=== PATIENT | male | born 1940 | race Caucasian/White ===

== ENCOUNTER → 2018-09-18 | Outpatient (CLI) | payer MEDICARE ==
[~2018-09-18] MED LIST: ASPI-1197 PO; ATOR40TA69 PO; CALC300T31 PO; DOCU100T PO; METO25TA6 PO; MULT-1192 PO; REGADENOSON 0.4 MG/5 ML PF SYG IVP SCH
== END | disposition home or self-care (01) ==
LOC: SHCH 09:05
PROVIDERS: ATTEND Internal Medicine Cardiovascular Disease
DX: I20.8 Other forms of angina pectoris (principal); Z72.89 Other problems related to lifestyle
CPT/HCPCS: 78452; 93017; 96374; A9505; J2785

== ENCOUNTER → 2019-05-14 | Outpatient (CLI) | payer MEDICARE ==
[~2019-05-14] MED LIST changes: -REGADENOSON 0.4 MG/5 ML PF SYG IVP SCH
== END | disposition home or self-care (01) ==
LOC: SHCH 07:56
PROVIDERS: ATTEND Internal Medicine Cardiovascular Disease
DX: I71.4 Abdominal aortic aneurysm, without rupture (principal)
CPT/HCPCS: 93978

== ENCOUNTER → 2023-08-02 | Outpatient (CLI) | payer OTHER | END | disposition home or self-care (01) | LOC: RAH 14:09 | PROVIDERS: ATTEND Urology | DX: N28.89 Other specified disorders of kidney and ureter (principal); N20.0 Calculus of kidney | CPT/HCPCS: 76770 ==

== ENCOUNTER → 2023-12-08 | Outpatient (CLI) | payer OTHER ==
[~2023-12-08] MED LIST changes: +REGADENOSON 0.4 MG/5 ML PF SYG IVP ONE
== END | disposition home or self-care (01) ==
LOC: SHCH 07:40
PROVIDERS: ATTEND Internal Medicine Cardiovascular Disease
DX: I45.10 Unspecified right bundle-branch block (principal); I25.10 Atherosclerotic heart disease of native coronary artery without angina pectoris; R06.00 Dyspnea, unspecified
CPT/HCPCS: 78452; 96374; 93017; J2785; A9500 ×2

== ENCOUNTER → 2023-12-27 | Outpatient (CLI) | payer OTHER ==
[~2023-12-27] MED LIST changes: -REGADENOSON 0.4 MG/5 ML PF SYG IVP ONE
[2023-12-27 16:20] LABS: BASOPHILS # (AUTO) 0.05 K/uL (0.00-0.20); BASOPHILS % (AUTO) 0.5 % (0.0-5.0); EOSINOPHILS # (AUTO) 0.55 K/uL (0.00-0.70); EOSINOPHILS % (AUTO) 5.4 % (0.0-8.0); HEMATOCRIT 37.7 % (42-54); IMMATURE GRANULOCYTE ABSOLUTE 0.04 K/uL (0-1); LYMPHOCYTES # (AUTO) 1.8 K/uL (1.0-4.8); LYMPHOCYTES % (AUTO) 17.6 % (21.0-51.0); MEAN CORPUSCULAR HEMOGLOBIN 30.9 pg (27.0-33.0); MEAN CORPUSCULAR HGB CONC 33.7 g/dL (32.0-36.0); MEAN CORPUSCULAR VOLUME 91.7 fL (79-99); MONOCYTES # (AUTO) 0.8 K/uL (0.1-1.0); MONOCYTES % (AUTO) 7.8 % (3.0-13.0); NEUTROPHILS % (AUTO) 68.3 % (40.0-77.0); PLATELET COUNT (AUTO) 200 K/uL (130-400); RED BLOOD CELL COUNT(AUTO) 4.11 MIL/uL (4.50-6.20); RED CELL DISTRIBUTION WIDTH 13.3 % (11.0-15.5); WHITE BLOOD COUNT (AUTO) 10.2 K/uL (4.8-10.8)
== END | disposition home or self-care (01) ==
LOC: LAB 12:52
PROVIDERS: ATTEND Internal Medicine Cardiovascular Disease
DX: I25.10 Atherosclerotic heart disease of native coronary artery without angina pectoris (principal)
CPT/HCPCS: 36415; 85025; 85378

== ENCOUNTER → 2024-02-27 | Outpatient (CLI) | payer OTHER | END | disposition home or self-care (01) | LOC: RAH 13:10 | PROVIDERS: ATTEND Internal Medicine Cardiovascular Disease | DX: R06.00 Dyspnea, unspecified (principal); R79.1 Abnormal coagulation profile; M47.814 Spondylosis without myelopathy or radiculopathy, thoracic region | CPT/HCPCS: 78582; 71045; A9540; A9558 ==

== ENCOUNTER 2024-03-05 12:20 | Emergency (ER) | payer OTHER ==
[~2024-03-05] VITALS: Ht 182.9 cm; Wt 95.3 kg
[2024-03-05] MEDS: MORPHINE 4 MG SYG IM ONE (13:37)
[2024-03-05] MEDS ORDERED: LIDOP TD (17:05)
[2024-03-05] MEDS ORDERED: TRAM50TA4 PO (17:05)
[2024-03-05] MEDS: LIDOCAINE 5% TOPICAL PATCH TP ONE (17:09)
[2024-03-05 18:14] VITALS: BP 167/70; PULSE 68; RESP 19; O2SAT 99
== END 2024-03-05 18:07 | disposition home or self-care (01) ==
LOC: EDH 12:20
DX: S22.41XA Multiple fractures of ribs, right side, initial encounter for closed fracture (principal); E78.00 Pure hypercholesterolemia, unspecified; I50.9 Heart failure, unspecified; J44.9 Chronic obstructive pulmonary disease, unspecified; K21.9 Gastro-esophageal reflux disease without esophagitis; Z79.82 Long term (current) use of aspirin; Z79.899 Other long term (current) drug therapy; Z98.890 Other specified postprocedural states; Z88.0 Allergy status to penicillin; Z88.8 Allergy status to other drugs, medicaments and biological substances; W18.39XA Other fall on same level, initial encounter; Y93.01 Activity, walking, marching and hiking; Y92.89 Other specified places as the place of occurrence of the external cause; Y99.8 Other external cause status
CPT/HCPCS: 99285; 70450; 71250; 96372; J2270

== ENCOUNTER 2024-03-07 06:10 | Emergency (ER) | payer OTHER ==
[~2024-03-07 06:10] MED LIST changes: +LIDOP TD; +TRAM50TA4 PO
[2024-03-07] MEDS: FAMOTIDINE 20MG VIAL IV ONE (08:34)
[2024-03-07] MEDS: METOCLOPRAMIDE 10 MG/2 ML VIAL IVP ONE (08:34)
[2024-03-07] MEDS: DIAZEPAM 5 MG/ML 2 ML SYG IVP ONE (08:35)
[2024-03-07] MEDS: KETOROLAC 30MG VIAL (30MG/ML) IVP ONE (08:35)
[2024-03-07] MEDS: ALBUTEROL 0.083% 2.5 MG/3 ML INH IH ONE (08:36)
[2024-03-07 08:38] VITALS: PULSE 64; RESP 18
[2024-03-07] MEDS ORDERED: MELO-106 PO (09:10)
[2024-03-07] MEDS ORDERED: AUD IH (09:10)
[2024-03-07] MEDS ORDERED: CYCL10TA16 PO (09:10)
[2024-03-07 09:31] VITALS: BP 154/69; PULSE 70; RESP 18; O2SAT 99
== END 2024-03-07 09:45 | disposition home or self-care (01) ==
LOC: EDH 06:10
DX: S22.41XA Multiple fractures of ribs, right side, initial encounter for closed fracture (principal); I11.0 Hypertensive heart disease with heart failure; I50.9 Heart failure, unspecified; E78.00 Pure hypercholesterolemia, unspecified; K21.9 Gastro-esophageal reflux disease without esophagitis; Z79.82 Long term (current) use of aspirin; Z79.899 Other long term (current) drug therapy; Z98.890 Other specified postprocedural states; Z88.0 Allergy status to penicillin; Z88.8 Allergy status to other drugs, medicaments and biological substances; W18.39XA Other fall on same level, initial encounter; Y93.89 Activity, other specified; Y92.89 Other specified places as the place of occurrence of the external cause; Y99.8 Other external cause status
CPT/HCPCS: 99284; 96374; 96375; 94640; J3490; J3360; J1885; J2765

== ENCOUNTER 2024-07-04 13:08 | Emergency (ER) | payer OTHER ==
[~2024-07-04] VITALS: Ht 185.4 cm; Wt 97.1 kg
[~2024-07-04 13:08] MED LIST changes: +AUD IH; +CYCL10TA16 PO; +MELO-106 PO
[2024-07-04 13:54] LABS: HEMATOCRIT 39.5 % (42-54); MEAN CORPUSCULAR HEMOGLOBIN 31.1 pg (27.0-33.0); MEAN CORPUSCULAR HGB CONC 33.7 g/dL (32.0-36.0); MEAN CORPUSCULAR VOLUME 92.5 fL (79-99); RED BLOOD CELL COUNT(AUTO) 4.27 MIL/uL (4.50-6.20); RED CELL DISTRIBUTION WIDTH 12.9 % (11.0-15.5); WHITE BLOOD COUNT (AUTO) 9.8 K/uL (4.8-10.8)
[2024-07-04 14:02] LABS: CREATININE 1.9 mg/dL (0.5-1.3)
[2024-07-04] MEDS: 0.9% NACL 500ML IV.SOLN 500 ML IV ONE (15:17)
[2024-07-04 15:41] LABS: APPEARANCE,URINE CLOUDY (CLEAR); BILIRUBIN,URINE NEGATIVE (NEGATIVE); COLOR,URINE YELLOW (YELLOW); GLUCOSE, URINE (UA) NEGATIVE (NEGATIVE); KETONES,URINE NEGATIVE (NEGATIVE); LEUKOCYTE ESTERASE ,URINE 500 Leu/uL (NEGATIVE); NITRATE,URINE NEGATIVE (NEGATIVE); OCCULT BLOOD,URINE NEGATIVE (NEGATIVE); PH,URINE 5.5 (5.0-8.0); PROTEIN,URINE NEGATIVE (NEGATIVE); UROBILINOGEN,URINE 0.2 mg/dL (0.2-1.0)
[2024-07-04 15:47] LABS: ADD UA MICROSCOPIC YES
[2024-07-04 15:50] VITALS: BP 136/62; PULSE 65; RESP 17; O2SAT 98
[2024-07-04 15:53] LABS: BACTERIA,URINE RARE /HPF (None Seen); MUCUS,URINE RARE LPF (None Seen); SQUAMOUS EPITHELIAL CELL,UR RARE /HPF (0-2); WBC,URINE TNTC /HPF (0-1)
== END 2024-07-04 16:30 | disposition home or self-care (01) ==
LOC: EDH 13:08
DX: R55 Syncope and collapse (principal); I11.0 Hypertensive heart disease with heart failure; I25.10 Atherosclerotic heart disease of native coronary artery without angina pectoris; I50.9 Heart failure, unspecified; E78.00 Pure hypercholesterolemia, unspecified; K21.9 Gastro-esophageal reflux disease without esophagitis; Z79.82 Long term (current) use of aspirin; Z79.899 Other long term (current) drug therapy; Z88.0 Allergy status to penicillin; Z88.8 Allergy status to other drugs, medicaments and biological substances; Z95.5 Presence of coronary angioplasty implant and graft; Z98.890 Other specified postprocedural states
CPT/HCPCS: 36415; 70450; 80048; 81001; 84484; 85027; 87086; 87186; 93005

== ENCOUNTER → 2024-07-31 | Outpatient (CLI) | payer OTHER | END | disposition home or self-care (01) | LOC: RAH 10:27 | PROVIDERS: ATTEND Internal Medicine | DX: S09.90XA Unspecified injury of head, initial encounter (principal); G31.89 Other specified degenerative diseases of nervous system; X58.XXXA Exposure to other specified factors, initial encounter; Y93.89 Activity, other specified; Y92.89 Other specified places as the place of occurrence of the external cause; Y99.8 Other external cause status | CPT/HCPCS: 70450 ==

== ENCOUNTER → 2024-09-12 | Outpatient (CLI) | payer OTHER ==
[~2024-09-12] MED LIST changes: -AUD IH; +BETA1TAB20 PO; -CALC300T31 PO; -CYCL10TA16 PO; -DOCU100T PO; +FLUT16H NS; +FURO20TA4 PO; +ISOS30TA92 PO; -LIDOP TD; -MELO-106 PO; -MULT-1192 PO; +SAW160CA3 PO; +TAMS-1 PO; -TRAM50TA4 PO
== END | disposition home or self-care (01) ==
LOC: RAH 14:32
PROVIDERS: ATTEND Internal Medicine
DX: G31.9 Degenerative disease of nervous system, unspecified (principal); G30.9 Alzheimer's disease, unspecified; G93.89 Other specified disorders of brain
CPT/HCPCS: 70551